=== PATIENT | female | born 1950 | race Caucasian/White ===

== ENCOUNTER 2021-05-12 07:05 | Day surgery (SDC) | payer OTHER ==
--- NOTE | 2021-05-09 14:52 | RAD REPORT ---
EXAM DESCRIPTION: RAD - Chest Pa And Lat (2 Views) - 05/09/2021 2:38 pm CLINICAL HISTORY: PreOp Heart Cath COMPARISON: January 2020 TECHNIQUE: Frontal and lateral views of the chest were obtained. FINDINGS: The lungs are clear. Interstitial pattern matches comparison. Heart size is normal and ce ntral vasculature is within normal limits. No pleural effusion or pneumothorax seen. No acute bony finding noted. No aortic abnormality. IMPRESSION: No acute cardiopulmonary process.
[2021-05-09 14:59] LABS: Absolute Lymphocytes (CBC) 2.4 K/uL (0.7-4.9); Basophils % 1.3 % (0-1.3); Hematocrit 37.5 % (36.0-45.0); Lymphocytes % 22.1 % (15.3-44.8); MPV 8.3 fL (7.6-11.3); RBC Red Blood Cell Count 4.33 M/uL (3.86-4.86)
[2021-05-09 15:02] LABS: Protime INR 1.14
[2021-05-09 15:04] LABS: Potassium 3.7 mmol/L (3.5-5.1)
[2021-05-12] MEDS ORDERED: NA CHLORIDE 0.9% 500 ML ONE (07:54)
[2021-05-12] MEDS ORDERED: MIDAZOLAM HCL 2 MG/2 ML INJ ONE ×2 (07:57→08:05)
[2021-05-12] MEDS ORDERED: FENTANYL CITR 100 MCG/2 ML ONE ×2 (07:57→08:05)
[2021-05-12] MEDS ORDERED: NITROGLYCERIN 100 MCG/ML SYR (for cath lab use only) IV ONE (08:03)
[2021-05-12] MEDS ORDERED: NA CHLORIDE 0.9% 0 ML ONE (08:03)
[2021-05-12] MEDS ORDERED: NITROGLYCERIN/D5W 25 MG/250 ML BTL IV ONE (08:04)
[2021-05-12] MEDS ORDERED: ATROPINE SULF 1 MG/10 ML SYR IV ONE (08:17)
--- NOTE | 2021-05-12 09:10 | OP ---
Date of Procedure: 05/12/2021 Surgeon: Chris Garcia MD Inweaver: Mr. Fco Springer. 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 Left heart catheterization with selective coronary arteriogram was done. The patient wa s prepped and draped in routine sterile fashion, given Versed and fentanyl for sedation. A 6-Uzbek sheath was introduced in the right common femoral artery successfully after 10 mL of xylocaine using the Seldinger technique. Angiography there was normal. StarClose was used to locally close the case . Catheterization showed moderate coronary artery disease. We used Miracle catheter left and right to cannulate the left main and right main respectively. The left main had about a 20% stenosis. The re was a 40% stenosis in the ostium of the circumflex, which was nondominant. A JR4 catheter was use d to cannulate the RCA. The RCA was a very large vessel that extended all the way to the apex. Ther e was some [id number] plaquing in the mid RCA, she was right dominant. The patient tolerated t he procedure well. There were no complications. Blood Loss: 5 mL. Postoperative Diagnosis: Moderate coronary artery disease. Plan: Plan is for medical therapy. We will probably increase her statin and consider the use of Imd ur or Ranexa. Anesthesia: Total conscious sedation, 45 minutes. YANIV/ABDI Voice ID: [id number] Report ID: [id number]
[2021-05-12 09:27] VITALS: TEMP 97.5
[2021-05-12 09:58] VITALS: O2SAT 95
[2021-05-12 09:59] VITALS: BP 142/74
== END 2021-05-12 10:25 | disposition home or self-care (01) ==
LOC: CCL 07:05
DX: I25.110 Atherosclerotic heart disease of native coronary artery with unstable angina pectoris (principal); I82.532 Chronic embolism and thrombosis of left popliteal vein; I10 Essential (primary) hypertension; E11.9 Type 2 diabetes mellitus without complications; E78.2 Mixed hyperlipidemia; E03.9 Hypothyroidism, unspecified; F17.210 Nicotine dependence, cigarettes, uncomplicated; G62.9 Polyneuropathy, unspecified; E66.9 Obesity, unspecified; Z68.37 Body mass index [BMI] 37.0-37.9, adult; Z20.822 Contact with and (suspected) exposure to COVID-19; Z88.8 Allergy status to other drugs, medicaments and biological substances; Z91.013 Allergy to seafood; Z82.49 Family history of ischemic heart disease and other diseases of the circulatory system
CPT/HCPCS: 93005; 85025; 80048; 36415; 85610; 82947; 85730; 71046; 93454; U0003; C1893; J2250; J3010; J7040; J0583

== ENCOUNTER 2021-07-15 10:27 | Emergency (ER) | payer OTHER ==
--- OUTSIDE RECORDS SUMMARY | 2021-07-15 10:30 | XMS REPORT | Continuity of Care Document ---
:1950 Author Organization [facility] t Address [address] [place] [address] Dr. Del[address]. [address] [place] [address] Care Team Providers Name Role Phone GINGER Attending Clinician Unavailable RAMA Attending Clinician Unavailable RAMA Attending Clinician Unavailable ISABEL DYER Admitting Clinician Unavailable Payers Payer Name Policy Type Policy Number Effective Date Expiration Date Johnnie DUDLEY [id number] 2020 PLUS CLASSIC/VALUE 00:00:00 Problems This patient has no known problems. Allergies, Adverse Reactions, Alerts Allergy Allergy Status Severity Reaction(s) Onset Inactive Treating Comm ents Source Name Type Date Date Clinician LOVASTAT DRUG Active High Anaphylaxis Uni vers IN INGREDI 08-30 ity of 00:00: [address] NSAIDS Drug Active High Unknown-Cmnt Univ ers (NON-MARCIA Class 08-30 ity of ROIDAL 00:00: [place] ANTI-INF [address] [place] [address] LAMMATOR [place] [facility]) Medications This patient has no known medications. Procedures This patient has no known procedures. Encounters Start End Encounter Admission Attending Care Care Encounter Source Date/Time Date/Time Type Type Clinicians Facility Department ID 2020-08-30 Inpatient U GINGER KSTHEO [facility] [id number] Univers 21:42:00 MIKE ity of [facility] 2020-11-21 2020-11-21 Outpatient R TAY ONTIVEROS [facility] 10 [id number] Univers 09:20:00 09:20:00 TAY ONTIVEROS i ty [facility] Results This patient has no known results.
[2021-07-15] MEDS ORDERED: NA CHLORIDE 0.9% 500 ML ONE ×2 (11:11→12:57)
[2021-07-15 11:26] LABS: Absolute Lymphocytes (CBC) 2.3 K/uL (0.7-4.9); Basophils % 0.8 % (0-1.3); Hematocrit 37.8 % (36.0-45.0); Lymphocytes % 27.2 % (15.3-44.8); MPV 8.1 fL (7.6-11.3); Protime INR 1.11; RBC Red Blood Cell Count 4.34 M/uL (3.86-4.86)
[2021-07-15 11:43] LABS: BUN Blood Urea Nitrogen 22 mg/dL (7-18); Bicarbonate 28 mmol/L (21-32); Glucose Level 123 mg/dL (74-106); Magnesium 2.1 mg/dL (1.8-2.4); NT PRO-BNP 120 pg/mL (<125); Potassium 3.7 mmol/L (3.5-5.1); Sodium Level 141 mmol/L (136-145); Troponin (Emerg Dept Use Only) < 0.02 ng/mL (0.0-0.045)
--- NOTE | 2021-07-15 12:13 | RAD REPORT ---
EXAM DESCRIPTION: CT - Head Brain Wo Cont - 07/15/2021 11:27 am CLINICAL HISTORY: generalized weakness, syncope COMPARISON: No comparisons TECHNIQUE: All CT scans are performed using dose optimization technique as appropriate and may inclu de automated exposure control or mA/KV adjustment according to patient size. FINDINGS: No intracranial hemorrhage, hydrocephalus or extra-axial fluid collection.No areas of brai n edema or evidence of midline shift. The paranasal sinuses and mastoids are clear. The calvarium is intact. IMPRESSION: No acute intracranial abnormality.
--- NOTE | 2021-07-15 12:27 | RAD REPORT ---
EXAM DESCRIPTION: Del Single View07/15/2021 11:33 am CLINICAL HISTORY: Hypotension COMPARISON: April 2021 FINDINGS: The lungs appear clear of acute infiltrate. The heart is normal size IMPRESSION: No acute abnormalities displayed
--- NOTE | 2021-07-15 15:07 | EDPHYS ---
Physician Documentation [facility] Name: Lian Warner Age: 70 yrs Sex: Female : 1950 Arrival Date: 07/15/2021 Time: 10:30 Bed 19 Private MD: Hudson Zabala Atiq ED Physician Felipe Barry HPI: 07/15 12:25 This 70 yrs old Female presents to ER via Wheelchair with complaints of Blood rn Pressure Problem. 12:25 Patient reports a few days of generalized weakness and fatigue. States noticed that rn blood pressure has been running lower than normal, in the range of 110 over 70s. States normally in the 140 range. Followed up with PCP, a lot of blood work was done and nothing acute found. Denies any fever or infectious symptoms. Denies any urinary symptoms. Reports did have diarrhea last week but has stopped after medication given by PCP. States 2 days ago sat up in bed and had a syncopal episode, no injury to head and landed in bed. Because of syncopal episode PCP sent her here to ER today after evaluation in clinic for further work-up. States recently placed on amlodipine for hypertension and is only supposed to take it when blood pressure is higher than 140, was dropping her blood pressure so stopped. Did not take today.. Onset: The symptoms/episode began/occurred at an unknown time. Severity of symptoms: At their worst the symptoms were moderate in the emergency department the symptoms have improved. The patient has not experienced similar symptoms in the past. The patient has been recently seen by a physician:. Historical: - Allergies: 10:47 NSAIDS (Non-Steroidal Anti-Inflamma; ll1 10:47 shrimp; ll1 - PMHx: 10:47 Hypertensive disorder; Diabetes mellitus; ll1 - PSHx: 10:47 Cholecystectomy; tubal ligation; ll1 - Immunization history:: Client reports receiving the 2nd dose of the Covid vaccine. - Social history:: Smoking status: Patient denies any tobacco usage or history of. - Family history:: not pertinent. - Hospitalizations: : No recent hospitalization is reported. ROS: 12:25 Constitutional: Negative for fever, chills, and weight loss, Eyes: Negative for injury, rn pain, redness, and discharge, ENT: Negative for injury, pain, and discharge, Neck: Negative for injury, pain, and swelling, Cardiovascular: Negative for chest pain, palpitations, and edema, Respiratory: Negative for shortness of breath, cough, wheezing, and pleuritic chest pain, Abdomen/GI: Negative for abdominal pain, nausea, vomiting, diarrhea, and constipation, Back: Negative for injury and pain, : Negative for injury, bleeding, discharge, and swelling, MS/Extremity: Negative for injury and deformity, Skin: Negative for injury, rash, and discoloration, Neuro: Negative for headache, numbness, tingling, and seizure. 12:25 All other systems are negative. Exam: 12:25 Constitutional: This is a well developed, well nourished patient who is awake, alert, rn and in no acute distress. Head/Face: Normocephalic, atraumatic. Eyes: Periorbital areas with no swelling, redness, or edema. ENT: Dry mucous membranes Cardiovascular: Regular rate and rhythm. No pulse deficits. Respiratory: No increased work of breathing, no retractions or nasal flaring. Abdomen/GI: Soft, non-tender Skin: Warm, dry MS/ Extremity: Pulses equal, no cyanosis. Neuro: Awake and alert, GCS 15, oriented to person, place, time, and situation. Cranial nerves II-XII grossly intact. Motor strength 5/5 in all extremities. Sensory grossly intact. Cerebellar exam normal. Vital Signs: 10:42 Pulse 72; Resp 16; Temp 97.4; Pulse Ox 99% ; Weight 118.39 kg; Height 5 ft. 11 in. ll1 (180.34 cm); Pain 0/10; 10:42 BP 142 / 71; ll1 11:08 BP 142 / 88; Pulse 76; Resp 18; Temp 97.6; Pulse Ox 100% ; sl2 12:02 BP 102 / 52; Pulse 69; Resp 18; Pulse Ox 100% ; jt3 13:04 BP 140 / 50; Pulse 68; Resp 16; Pulse Ox 100% on R/A; ss 14:28 BP 148 / 86; Pulse 66; Resp 16; Pulse Ox 100% on R/A; mh5 10:42 Body Mass Index 36.40 (118.39 kg, 180.34 cm) ll1 MDM: 10:55 Patient medically screened. rn 15:05 Differential Diagnosis dehydration, renal failure, HTN, medication side effect. Data rn reviewed: vital signs, nurses notes, lab test result(s), EKG, radiologic studies, CT scan, plain films, and as a result, I will discharge patient. Counseling: I had a detailed discussion with the patient and/or guardian regarding: the historical points, exam findings, and any diagnostic results supporting the discharge/admit diagnosis, lab results, radiology results, the need for outpatient follow up, to return to the emergency department if symptoms worsen or persist or if there are any questions or concerns that arise at home. Response to treatment: the patient's symptoms have mildly improved after treatment, and as a result, I will discharge patient. Special discussion: I discussed with the patient/guardian in detail that at this point there is no indication for admission to the hospital. It is understood, however, that if the symptoms persist or worsen the patient needs to return immediately for re-evaluation. ED course: No acute findings on blood work/CT head/chest x-ray. Feels better after IV hydration. Labs here consistent with labs as outpatient only showing prerenal and possibly dehydration. No measures of hypertension here. Will DC home with continuation of medication as prescribed and PCP follow-up.. 07/15 11:07 Order name: Basic Metabolic Panel 07/15 11:07 Order name: CBC with Diff rn 07/15 11:07 Order name: Magnesium; Complete Time: 12:22 07/15 11:07 Order name: NT PRO-BNP; Complete Time: 12:22 07/15 11:07 Order name: PT-INR; Complete Time: 12:22 07/15 11:07 Order name: Troponin (emerg Dept Use Only); Complete Time: 12:22 rn 07/15 11:07 Order name: XRAY Chest (1 view); Complete Time: 12:29 rn 07/15 11:07 Order name: EKG; Complete Time: 11: rn 07/15 11:07 Order name: CT Head Brain wo Cont; Complete Time: 12:22 rn 07/15 11:07 Order name: Basic Metabolic Panel; Complete Time: 12:22 [facility]DC 07/15 11:07 Order name: CBC with Automated Diff; Complete Time: 12:22 [facility] 07/15 15:29 Order name: Urine Dipstick-Ancillary [facility] 07/15 11:07 Order name: Cardiac monitoring; Complete Time: 11:14 rn 07/15 11:07 Order name: EKG - Nurse/Tech; Complete Time: : rn 07/15 11:07 Order name: IV Saline Lock; Complete Time: : rn 07/15 11:07 Order name: Labs collected and sent; Complete Time: : rn 07/15 11:07 Order name: O2 Per Protocol; Complete Time: : rn 07/15 11:07 Order name: O2 Sat Monitoring; Complete Time: : rn Administered Medications: 11:14 Drug: NS 0.9% 500 ml Route: IV; Rate: bolus; Site: left antecubital; sl2 12:56 Follow up: IV Status: Completed infusion; IV Intake: 500ml ss 13:03 Drug: NS 0.9% 500 ml Route: IV; Rate: bolus; Site: left antecubital; ss Disposition Summary: 07/15/21 15:06 Discharge Ordered Location: Home rn Problem: new rn Symptoms: have improved rn Condition: Stable rn Diagnosis - Muscle weakness (generalized) rn - Other malaise and fatigue rn Followup: rn - With: Private Physician - When: As needed - Reason: Recheck today's complaints, Re-evaluation by your physician Discharge Instructions: - Discharge Summary Sheet rn - Dehydration, Adult rn - Weakness rn Forms: - Medication Reconciliation Form rn - Thank You Letter rn - Work release form bd - Antibiotic mergers and acquisitions attorney - Prescription Opioid Use rn Signatures: Dispatcher [employer] Felipe Squires MD MD rn Smirch, Shelby, RN RN Brandi Nino RN RN 1 Apurva Eid RN RN sl2
--- NOTE | 2021-07-15 15:07 | ER ---
Nurse's Notes [facility] Name: Lian Warner Age: 70 yrs Sex: Female : 1950 Arrival Date: 07/15/2021 Time: 10:30 Bed 19 Private MD: Hudson Zabala Atiq Diagnosis: Muscle weakness (generalized);Other malaise and fatigue Presentation: 07/15 10:42 Chief complaint: Patient states: BP has been low off/on for 2 days. Blood sugar has ll1 been lower than usual (fingerstick 103) this morning. Dizzy, FISHER, weak, nausea. Diarrhea since 07/07/21, on Flagyl, diarrhea is better now. Coronavirus screen: Vaccine status: Patient reports receiving the 2nd dose of the covid vaccine. Client denies travel out of the [place] in the last 14 days. At this time, the client does not indicate any symptoms associated with coronavirus-19. Ebola Screen: Patient denies travel to an Ebola-affected area in the 21 days before illness onset. Initial Sepsis Screen: Does the patient meet any 2 criteria? No. Patient's initial sepsis screen is negative. Initial Sepsis Screen: Does the patient have a suspected source of infection? Yes: Acute abdominal pain. Risk Assessment: Do you want to hurt yourself or someone else? Patient reports no desire to harm self or others. Onset of symptoms was July 07, 2021. 10:42 Method Of Arrival: Wheelchair ll1 10:42 Acuity: CHELO 3 ll1 Historical: - Allergies: 10:47 NSAIDS (Non-Steroidal Anti-Inflamma; ll1 10:47 shrimp; ll1 - PMHx: 10:47 Hypertensive disorder; Diabetes mellitus; ll1 - PSHx: 10:47 Cholecystectomy; tubal ligation; ll1 - Immunization history:: Client reports receiving the 2nd dose of the Covid vaccine. - Social history:: Smoking status: Patient denies any tobacco usage or history of. - Family history:: not pertinent. - Hospitalizations: : No recent hospitalization is reported. Screenin:09 Abuse screen: Denies threats or abuse. Nutritional screening: No deficits noted. sl2 Tuberculosis screening: No symptoms or risk factors identified. Fall Risk No fall in past 12 months (0 pts). No secondary diagnosis (0 pts). IV access (20 points). Ambulatory Aid- Crutches/Cane/Walker (15 pts). Gait- Weak (10 pts.). Mental Status- Oriented to own ability (0 pts). Total Galo Fall Scale indicates High Risk Score (45 or more points). Fall prevention measures have been instituted. Side Rails Up X 2 Placed Close to Nursing Station Frequent Obs/Assessments Occuring Family Present and informed to notify staff if the need to leave the bedside. Assessment: 10:53 General: Appears uncomfortable, obese, well groomed, well developed, Behavior is calm, sl2 cooperative, appropriate for age, Reports Hypotension and lower than normal blood sugars with finger stick blood glucose = 103 this am. Patient reports feeling weak and dizzy today. Denies pain - presents to ED for evaluaiton. Pain: Denies pain. Neuro: No deficits noted. Level of Consciousness is awake, alert, obeys commands, Oriented to person, place, time, situation, Appropriate for age Deck Cadet are equal bilaterally Moves all extremities. Full function Gait is unsteady, Speech is normal, Reports dizziness, headache. Neuro: Reports weakness. Cardiovascular: No deficits noted. Respiratory: No deficits noted. Airway is patent Trachea midline Respiratory effort is even, unlabored, Respiratory pattern is regular, symmetrical, Breath sounds are clear bilaterally. GI: Abdomen is round obese, Bowel sounds present X 4 quads. Abd is soft and non tender. : No deficits noted. No signs and/or symptoms were reported regarding the genitourinary system. EENT: No deficits noted. No signs and/or symptoms were reported regarding the EENT system. Derm: No deficits noted. No signs and/or symptoms reported regarding the dermatologic system. Musculoskeletal: No deficits noted. No signs and/or symptoms reported regarding the musculoskeletal system. 11:17 Reassessment: Portable CXR in progress at bedside. sl2 13:03 Reassessment: Patient appears in no apparent distress at this time. Patient and/or ss family updated on plan of care and expected duration. Pain level reassessed. Patient is alert, oriented x 3, equal unlabored respirations, skin warm/dry/pink. 2nd bolus infusing. Awaiting for completion to determine plan of care/ disposition. Family member remains at bedside. Pt has no complaints at this time other than she is hungry. Will notify Dr. Barry and ask if she can eat. Vital Signs: 10:42 Pulse 72; Resp 16; Temp 97.4; Pulse Ox 99% ; Weight 118.39 kg; Height 5 ft. 11 in. ll1 (180.34 cm); Pain 0/10; 10:42 BP 142 / 71; ll1 11:08 BP 142 / 88; Pulse 76; Resp 18; Temp 97.6; Pulse Ox 100% ; sl2 12:02 BP 102 / 52; Pulse 69; Resp 18; Pulse Ox 100% ; jt3 13:04 BP 140 / 50; Pulse 68; Resp 16; Pulse Ox 100% on R/A; ss 14:28 BP 148 / 86; Pulse 66; Resp 16; Pulse Ox 100% on R/A; mh5 10:42 Body Mass Index 36.40 (118.39 kg, 180.34 cm) ll1 ED Course: 10:30 Patient arrived in ED. as 10:30 Hudson Zabala MD is Private Physician. as 10:47 Triage completed. ll1 10:48 Arm band placed on Patient placed in an exam room, on a stretcher. ll1 10:52 Apurva Eid, RN is Primary Nurse. sl2 10:55 Felipe Barry MD is Attending Physician. rn 11:09 Patient has correct armband on for positive identification. Bed in low position. Call sl2 light in reach. Side rails up X2. Adult w/ patient. alarm security or surveillance monitor on. Pulse ox on. NIBP on. Door closed. Noise minimized. Warm blanket given. 11:09 No provider procedures requiring assistance completed. Inserted saline lock: 20 gauge sl2 in left antecubital area, using aseptic technique. Blood collected. 11:16 CBC with Automated Diff Sent. 5 11:16 Basic Metabolic Panel Sent. 5 11:16 Basic Metabolic Panel Sent. 5 11:16 CBC with Diff Sent. 5 11:16 Magnesium Sent. 5 11:16 NT PRO-BNP Sent. [facility] 11:16 PT-INR Sent. [facility] 11:16 Troponin (emerg Dept Use Only) Sent. 5 11:17 Initial lab(s) drawn, by ED staff, sent to lab. EKG done, by ED staff, reviewed by jewels Barry MD. 11:[address] via stretcher. sl2 11:27 CT Head Brain wo Cont In Process Unspecified. EDMS 11:33 XRAY Chest (1 view) In Process Unspecified. EDMS 16:07 IV discontinued, intact, bleeding controlled, No redness/swelling at site. Pressure ss dressing applied. Administered Medications: 11:14 Drug: NS 0.9% 500 ml Route: IV; Rate: bolus; Site: left antecubital; sl2 12:56 Follow up: IV Status: Completed infusion; IV Intake: 500ml ss 13:03 Drug: NS 0.9% 500 ml Route: IV; Rate: bolus; Site: left antecubital; ss Intake: 12:56 IV: 500ml; Total: 500ml. ss Outcome: 15:06 Discharge ordered by . rn 16:07 Discharged to home ambulatory. ss 16:07 Condition: good 16:07 Discharge instructions given to patient, family, Instructed on discharge instructions, follow up and referral plans. Demonstrated understanding of instructions, follow-up care. 16:08 Patient left the ED. ss Signatures: Dispatcher [employer] Sylvia Awan Roman, MD MD rn Smirch, Shelby, RN RN Dai Warner [facility] Brandi Amaya RN RN ll1 Apurva Eid RN RN sl2 Naveed Whaley RN RN jt3
[2021-07-15 15:29] LABS: Urine Blood Negative (Negative); Urine Glucose Negative (Negative); Urine Protein Negative (Negative); Urine Specific Gravity 1.025 (1.005-1.030)
[2021-07-15 16:19] VITALS: TEMP 97.6; O2SAT 100
[2021-07-15 16:23] VITALS: BP 148/86
--- NOTE | 2021-07-16 17:01 | EKG ---
Test Date: 2021-07-15 Test Time: 11:09:52 [employer] Director: ELLEN MEASUREMENT RESULTS: Intervals: Rate: 71 GA: 160 QRSD: 80 QT: 378 QTc: 410 [place]: P: 56 GA: 160 QRS: 30 T: 63 INTERPRETIVE STATEMENTS: Sinus rhythm with occasional premature ventricular complexes Nonspecific T wave abnormality Abnormal ECG Compared to ECG 05/09/2021 13:16:46 Ventricular premature complex(es) now present T-wave abnormality now present ST (T wave) deviation no longer present Electronically Signed On 07-16-21 16:57:19 WIRE WELDER by Chris Garcia
== END 2021-07-15 16:08 | disposition home or self-care (01) ==
LOC: ER 10:27
DX: M62.81 Muscle weakness (generalized) (principal); R53.81 Other malaise; I10 Essential (primary) hypertension; E11.9 Type 2 diabetes mellitus without complications; Z88.6 Allergy status to analgesic agent; Z91.013 Allergy to seafood
CPT/HCPCS: 96361; 93005; 85025; 80048; 36415; 83735; 85610; 81003; 84484; 83880; 70450; 71045; 96360; 99285; J7040 ×2

== ENCOUNTER 2022-03-12 17:01 | Emergency (ER) | payer MEDICARE, OTHER ==
[2022-03-12 17:48] LABS: Absolute Lymphocytes (CBC) 2.5 K/uL (0.7-4.9); Hematocrit 36.6 % (36.0-45.0); Lymphocytes % 28.8 % (15.3-44.8); MCV 86.4 fL (80-100); MPV 8.1 fL (7.6-11.3); RBC Red Blood Cell Count 4.23 M/uL (3.86-4.86)
[2022-03-12 17:52] LABS: Protime INR 1.12
--- NOTE | 2022-03-12 18:03 | RAD REPORT ---
EXAM DESCRIPTION: RAD - Chest Single View - 03/12/2022 5:54 pm CLINICAL HISTORY: SOB Chest pain. COMPARISON: Chest Single View dated 07/15/2021; Chest Pa And Lat (2 Views) dated 05/09/2021; Chest Pa And Lat (2 Views) dated 02/26/2020 FINDINGS: Portable technique limits examination quality. Slightly prominent interstitial markings are seen likely representing viral infection. The heart is n ormal in size. No displaced fractures.
[2022-03-12 18:17] LABS: Potassium 3.5 mmol/L (3.5-5.1); Troponin High Sensitivity 11.2 pg/mL (<58.9)
--- NOTE | 2022-03-12 19:44 | RAD REPORT ---
EXAM DESCRIPTION: CT - Chest For Pe Angio - 03/12/2022 7:34 pm CLINICAL HISTORY: Chest pain. Pulmonary embolism (PE) suspected, positive D-dimer COMPARISON: No comparisons TECHNIQUE: CT angiogram of the pulmonary arteries was performed with MIP. All CT scans are performed using dose optimization technique as appropriate and may include automated exposure control or mA/KV adjustment according to patient size. FINDINGS: No evidence of pulmonary thromboembolism. No acute aortic finding demonstrated. The lungs are clear. No significant pericardial or pleural fluid. No concerning bony finding. IMPRESSION: No evidence of pulmonary thromboembolism. No acute lung findings.
[2022-03-12] MEDS ORDERED: ACETAMINOPHEN 500 MG TAB ONE (20:53)
[2022-03-12] MEDS ORDERED: DIPHENHYDRAMINE 50 MG/ML VIAL ONE (20:53)
[2022-03-12] MEDS ORDERED: BEBTELOVIMAB 175 MG/2 ML VIAL IV ONE (20:53)
--- NOTE | 2022-03-12 22:42 | EDPHYS ---
Physician Documentation [facility] Name: Lian Warner Age: 71 yrs Sex: Female : 1950 Arrival Date: 03/12/2022 Time: 17:02 Bed 4 Private MD: ED Physician Angel Moreno HPI: 03/12 17:49 This 71 yrs old Female presents to ER via Ambulatory with complaints of Shortness Of jr11 Breath. 17:49 The patient has shortness of breath with light activity, laying flat. Onset: The jr11 symptoms/episode began/occurred 7 day(s) ago. Duration: The symptoms are continuous, and are steadily getting worse. The patient's shortness of breath is aggravated by light activity, supine position, is alleviated by nothing. Associated signs and symptoms: Pertinent negatives: chest pain, productive cough, nausea. Severity of symptoms: At their worst the symptoms were moderate in the emergency department the symptoms are worse. Pt with 1 week dyspnea, no pain . Historical: - Allergies: 17:25 NSAIDS (Non-Steroidal Anti-Inflamma; iw 17:25 shrimp; iw - PMHx: 17:25 diabetes mellitus; Hypertensive disorder; iw - PSHx: 17:25 Cholecystectomy; tubal ligation; iw - Immunization history:: Client reports receiving the 2nd dose of the Covid vaccine. - Social history:: Smoking status: unknown. ROS: 17:49 All other systems are negative. jr11 Exam: 17:49 Constitutional: This is a well developed, well nourished patient who is awake, alert, jr11 and in no acute distress. Head/Face: Normocephalic, atraumatic. Eyes: Extra-ocular motions intact. Lids and lashes normal. Conjunctiva and sclera are non-icteric and not injected. Cornea within normal limits. Periorbital areas with no swelling, redness, or edema. ENT: Nares patent. No nasal discharge, no septal abnormalities noted. Oropharynx with no redness, swelling, or masses, exudates, or evidence of obstruction, uvula midline. Mucous membranes moist. Neck: Trachea midline, no thyromegaly or masses palpated, and no cervical lymphadenopathy. Supple, full range of motion without nuchal rigidity, or vertebral point tenderness. No Meningismus. Chest/axilla: Normal chest wall appearance and motion. Nontender with no deformity. No lesions are appreciated. Cardiovascular: Regular rate and rhythm with a normal S1 and S2. No gallops, murmurs, or rubs. Normal PMI, no JVD. No pulse deficits. Respiratory: diminished diffusely Abdomen/GI: Soft, non-tender, with normal bowel sounds. No distension or tympany. No guarding or rebound. No evidence of tenderness throughout. Back: No spinal tenderness. No costovertebral tenderness. Full range of motion. Skin: Warm, dry with normal turgor. Normal color with no rashes, no lesions, and no evidence of cellulitis. MS/ Extremity: Pulses equal, no cyanosis. Neurovascular intact. Full, normal range of motion. Neuro: Awake and alert, GCS 15, oriented to person, place, time, and situation. No gross motor or sensory deficits. Vital Signs: 17:22 BP 128 / 66; Pulse 88; Resp 16; Temp 98.7; Pulse Ox 99% on R/A; Weight 119.75 kg; iw Height 5 ft. 11 in. (180.34 cm); 19:21 BP 139 / 64; Pulse 77; Resp 17; Pulse Ox 99% on R/A; as6 20:37 BP 138 / 75; Pulse 72; Resp 18; Pulse Ox 100% on R/A; ld1 21:45 BP 140 / 80; Pulse 69; Resp 17 S; Pulse Ox 99% on R/A; as6 22:47 BP 141 / 63; Pulse 70; Resp 14 S; Pulse Ox 98% on R/A; as6 17:22 Body Mass Index 36.82 (119.75 kg, 180.34 cm) iw MDM: 17:36 Patient medically screened. jr11 17:49 Differential diagnosis: Bronchitis pneumonia, pulmonary edema. Data reviewed: [facility] signs, nurses notes. 20:35 ED course: Feels better, well appearing, NAD, VSS, no focal neurological deficits. mh7 Discussed all test results and findings of COVID and available treatment options. Offered admission for observation but patient declined and requests to be discharged home. She does want treatment with [facility] if available.. 22:39 ED course: Patient received Bebtelovimab as requested and feels better. Well appearing, 7 NAD, VSS, no focal neurological deficits. She states that she is ready to be discharged home.. 03/12 17:27 Order name: Basic Metabolic Panel; Complete Time: 18:23 03/12 17:27 Order name: CBC with Diff; Complete Time: 18:04 03/12 17:27 Order name: Troponin HS; Complete Time: 18:23 03/12 17:32 Order name: PT-INR; Complete Time: 18:04 03/12 17:34 Order name: BNP; Complete Time: 19:08 [facility] 03/12 17:34 Order name: COVID-19 SARS RT PCR (Document "Date of Onset" if Symptomatic); Complete Time: 19:28 03/12 17:27 Order name: XRAY Chest (1 view); Complete Time: 18:04 03/12 17:27 Order name: EKG; Complete Time: 17:28 03/12 17:27 Order name: Cardiac monitoring; Complete Time: 19:20 03/12 17:34 Order name: D-Dimer; Complete Time: 18:04 03/12 18:49 Order name: CT Chest For PE Angio; Complete Time: 20:02 03/12 17:27 Order name: EKG - Nurse/Tech; Complete Time: 19:04 03/12 17:27 Order name: IV Saline Lock; Complete Time: 18:56 03/12 17:27 Order name: Labs collected and sent; Complete Time: 18:56 03/12 17:27 Order name: O2 Per Protocol; Complete Time: 19:20 03/12 17:27 Order name: O2 Sat Monitoring; Complete Time: 19:20 Administered Medications: 20:52 Drug: Benadryl (diphenhydrAMINE) 25 mg Route: IVP; Site: left antecubital; as6 22:49 Follow up: Response: No adverse reaction as6 20:54 Drug: Tylenol 1000 mg Route: PO; as6 22:49 Follow up: Response: No adverse reaction as6 21:30 Drug: bebtelovimab 175 mg Route: IV; Rate: per protocol; Site: left antecubital; as6 22:49 Follow up: Response: No adverse reaction; IV Status: Infusion continued; IV Intake: 2ml as6 Disposition Summary: 03/12/22 22:42 Discharge Ordered Location: Home mh7 Problem: new mh7 Symptoms: have improved mh7 Condition: Stable [facility] Diagnosis - SARS-associated coronavirus as the cause of diseases classified elsewhere [facility] Followup: [facility] - With: Private Physician - When: 1 - 2 days - Reason: Worsening of condition, Recheck today's complaints, Continuance of care, Re-evaluation by your physician Discharge Instructions: - Discharge Summary Sheet [facility] - COVID-19 [facility] - Things to Know about the COVID-19 Pandemic - [place] [id number] - 10 Things You Can Do to Manage Your COVID-19 Symptoms at Home - [place] [address] - COVID-19: Quarantine vs. Isolation - [place] [address] - Prevent the Spread of COVID-19 if You Are Sick - [place] [address] Forms: - Medication Reconciliation Form [facility] - Thank You Letter [facility] - Antibiotic Education [facility] - Prescription Opioid Use [facility] Prescriptions: - ALBUTEROL - inhale 1 puff by INHALATION route every 4-6 hours As needed; 1 Inhaler; [facility] Refills: 0, Product Selection Permitted - Tessalon Perles 100 mg Oral Capsule - take 1 capsule by ORAL route every 8 hours As needed; 15 capsule; Refills: 0, [facility] Product Selection Permitted - Zithromax Z-Rkis 250 mg Oral Tablet - take 1 tablet by ORAL route as directed for 5 days Day 1 - take two (2) tablets [facility] one time. Day 2, 3, 4 , 5 take one (1) tablet once daily.; 6 tablet; Refills: 0, Product Selection Permitted Signatures: Dispatcher [employer] Leelee Cohen RN RN iw Holmes, Maurice, MD MD 7 Stan Espinoza RN RN as6 Rodrigo Doty MD MD jr11 Apurva Smith PA PA sb3
--- NOTE | 2022-03-12 22:42 | ER ---
Nurse's Notes [facility] Name: Lian Warner Age: 71 yrs Sex: Female : 1950 Arrival Date: 03/12/2022 Time: 17:02 Bed 4 Private MD: Diagnosis: SARS-associated coronavirus as the cause of diseases classified elsewhere Presentation: 03/12 17:22 Chief complaint: Patient states: SOB X 1 week, getting worse, denies chest pain, drinks iw 7 up to relieve the SOb but it comes back, denies cough fever or chills , reports she has midsternal pain when she takes a deep breath. Coronavirus screen: At this time, the client does not indicate any symptoms associated with coronavirus-19. Ebola Screen: Patient negative for fever greater than or equal to 101.5 degrees Fahrenheit, and additional compatible Ebola Virus Disease symptoms Patient denies exposure to infectious person. Patient denies travel to an Ebola-affected area in the 21 days before illness onset. No symptoms or risks identified at this time. Initial Sepsis Screen: Does the patient meet any 2 criteria? No. Patient's initial sepsis screen is negative. Does the patient have a suspected source of infection? No. Patient's initial sepsis screen is negative. Risk Assessment: Do you want to hurt yourself or someone else? Patient reports no desire to harm self or others. Onset of symptoms was March 05, 2022. 17:22 Method Of Arrival: Ambulatory iw 17:22 Acuity: CHELO 3 iw Historical: - Allergies: 17:25 NSAIDS (Non-Steroidal Anti-Inflamma; iw 17:25 shrimp; iw - PMHx: 17:25 diabetes mellitus; Hypertensive disorder; iw - PSHx: 17:25 Cholecystectomy; tubal ligation; iw - Immunization history:: Client reports receiving the 2nd dose of the Covid vaccine. - Social history:: Smoking status: unknown. Screenin:23 Abuse screen: Denies threats or abuse. Denies injuries from another. Nutritional as6 screening: No deficits noted. Tuberculosis screening: No symptoms or risk factors identified. Fall Risk None identified. Assessment: 19:20 General: Appears in no apparent distress. Behavior is calm, cooperative. Pain: Denies as6 pain. Neuro: Level of Consciousness is awake, alert, obeys commands, Oriented to person, place, time, situation. Cardiovascular: Reports shortness of breath, Rhythm is sinus rhythm. Respiratory: Reports shortness of breath at rest on exertion Airway is patent Respiratory effort is even, unlabored. 21:46 Reassessment: Patient appears in no apparent distress at this time. Patient is alert, as6 oriented x 3, equal unlabored respirations, skin warm/dry/pink. Vital Signs: 17:22 BP 128 / 66; Pulse 88; Resp 16; Temp 98.7; Pulse Ox 99% on R/A; Weight 119.75 kg; iw Height 5 ft. 11 in. (180.34 cm); 19:21 BP 139 / 64; Pulse 77; Resp 17; Pulse Ox 99% on R/A; as6 20:37 BP 138 / 75; Pulse 72; Resp 18; Pulse Ox 100% on R/A; ld1 21:45 BP 140 / 80; Pulse 69; Resp 17 S; Pulse Ox 99% on R/A; as6 22:47 BP 141 / 63; Pulse 70; Resp 14 S; Pulse Ox 98% on R/A; as6 17:22 Body Mass Index 36.82 (119.75 kg, 180.34 cm) iw ED Course: 17:02 Patient arrived in ED. as 17:25 Triage completed. iw 17:25 Arm band placed on. iw 17:32 Inserted saline lock: 22 gauge in left antecubital area, using aseptic technique. Blood iw collected. 17:33 Rodrigo Doty MD is Attending Physician. jr11 17:56 XRAY Chest (1 view) In Process Unspecified. EDMS 19:04 Stan Espinoza RN is Primary Nurse. as6 19:23 Attending Physician role handed off by Rodrigo Doty MD mh7 19:23 Angel Moreno MD is Attending Physician. mh7 19:23 Placed in gown. Bed in low position. Call light in reach. Side rails up X2. Client as6 placed on continuous cardiac and pulse oximetry monitoring. NIBP monitoring applied. Warm blanket given. 19:36 CT Chest For PE Angio In Process Unspecified. EDMS 21:16 Primary Nurse role handed off by Stan Espinoza, RN as6 21:29 Stan Espinoza RN is Primary Nurse. as6 22:48 No provider procedures requiring assistance completed. IV discontinued, intact, as6 bleeding controlled, No redness/swelling at site. Pressure dressing applied. Administered Medications: 20:52 Drug: Benadryl (diphenhydrAMINE) 25 mg Route: IVP; Site: left antecubital; as6 22:49 Follow up: Response: No adverse reaction as6 20:54 Drug: Tylenol 1000 mg Route: PO; as6 22:49 Follow up: Response: No adverse reaction as6 21:30 Drug: bebtelovimab 175 mg Route: IV; Rate: per protocol; Site: left antecubital; as6 22:49 Follow up: Response: No adverse reaction; IV Status: Infusion continued; IV Intake: 2ml as6 Medication: 22:48 VIS not applicable for this client. as6 Intake: 22:49 IV: 2ml; Total: 2ml. as6 Outcome: 22:42 Discharge ordered by . 7 22:48 Discharged to home ambulatory. as6 22:48 Condition: stable 22:48 Discharge instructions given to patient, Instructed on discharge instructions, follow up and referral plans. medication usage, Demonstrated understanding of instructions, follow-up care, medications, Prescriptions given X 3. 22:50 Patient left the ED. as6 Signatures: Dispatcher [employer] EDMS Sylvia Warner Irene, RN RN iw Angel Moreno MD MD 7 Magaly Prince RN RN ld1 Stan Espinoza RN RN as6 Rodrigo Doty MD MD jr11
[2022-03-12 23:26] VITALS: TEMP 98.7
[2022-03-12 23:35] VITALS: BP 141/63; O2SAT 98
--- NOTE | 2022-03-14 09:05 | EKG ---
Test Date: 2022-03-12 Test Time: 19:05:39 [employer] Operator: JOSE MEASUREMENT RESULTS: Intervals: Rate: 79 GA: 140 QRSD: 76 QT: 366 QTc: 419 [place]: P: 26 GA: 140 QRS: 10 T: -52 INTERPRETIVE STATEMENTS: Normal sinus rhythm Nonspecific ST and T wave abnormality Abnormal ECG Compared to ECG 07/15/2021 11:09:52 ST (T wave) deviation now present Ventricular premature complex(es) no longer present T-wave abnormality no longer present Electronically Signed On 03-14-22 09:02:57 CDT by Chris Garcia
== END 2022-03-12 22:50 | disposition home or self-care (01) ==
LOC: ER 17:01
DX: U07.1 COVID-19 (principal); E11.9 Type 2 diabetes mellitus without complications; I10 Essential (primary) hypertension; Z88.6 Allergy status to analgesic agent; Z91.013 Allergy to seafood
CPT/HCPCS: 93005; 85025; 80048; 36415; 85610; 85379; 84484; 83880; 71275; 71045; 99284; U0003; Q9967; J1200

== ENCOUNTER 2022-05-20 13:18 | Inpatient (IN) | payer MEDICARE ==
--- OUTSIDE RECORDS SUMMARY | 2022-05-20 13:21 | XMS REPORT | Continuity of Care Document ---
:1950 Author Organization [facility] t Address [address] [place] [address] Dr. Melendrez [address] [place] [address] Care Team Providers Name Role Phone MIKE MILES Attending Clinician Unavailable Carine Attending Clinician Unavailable OLIVIER Attending Clinician Unavailable STARR Attending Clinician Unavailable TAY ONTIVEROS Attending Clinician Unavailable TAY ONTIVEROS Attending Clinician Unavailable Sahra_A_AH Attending Clinician Unavailable Micky Briones Attending Clinician KWABENA DYER Admitting Clinician Unavailable Carine Admitting Clinician Unavailable OLIVIER Admitting Clinician Unavailable STARR Admitting Clinician Unavailable Deniseo_A_AH Admitting Clinician Unavailable Micky Briones Admitting Clinician Payers Payer Name Policy Type Policy Number Effective Date Expiration Date S kaci [employer] [place] [employer] [id number] 2020 CLASSIC/VALUE 00:00:00 [facility] [id number] 2021 (MEDICARE 00:00:00 REPLACEMENT HMO) [employer] OF [place] - [id number] 2019 [place] (MEDICARE 00:00:00 REPLACEMENT/ADVANTA GE - HMO) Problems Condition Condition Condition Status Onset Resolution Last Treating Co mments Source Name Details Category Date Date Treatment Clinician Date IMPACTED IMPACTED Diagnosis Active 2016-03-23 Memoria GALLSTONE GALLSTONE 03-17 22:00:00 l Active 00:00: Alcides 03/17/[address] [place] [address] Alcides Hyperchole Hyperchol Problem Resolve 2016-03-21 Memoria sterolemia esterolemi d 02:10:25 l (disorder) john morrow (disorder) Resolved Problem 03/21/2016 [place] Hypertensi Hypertens Problem Resolve 2016-03-21 Memoria ve tari d 02:10:25 l disorder, disorder, Herm lilia systemic systemic arterial arterial (disorder) (disorder) Resolved Problem 03/21/2016 [facility] Hypothyroi Hypothyro Problem Resolve 2016-03-21 Memoria dism idism d 02:10:25 l (disorder) (disorder) He rmann Resolved Problem 03/21/2016 [facility] GALLSTONE Diagnosis Active 2016-03-23 Memoria ILEUS GALLSTONE 22:00:00 l ILEUS Alcides Active [facility] Allergies, Adverse Reactions, Alerts Allergy Allergy Status Severity Reaction(s) Onset Inactive Treating Comm ents Source Name Type Date Date Clinician LOVASTAT DRUG Active High Anaphylaxis Uni vers IN INGREDI 08-30 ity of 00:00: [place] 00 Medical Branch NSAIDS Drug Active High Unknown-Cmnt Univ ers (NON-MARCIA Class 08-30 ity of ROIDAL 00:00: [place] ANTI-INF 00 Medical LAMMATOR Branch Y DRUG) NSAIDs [facility] Social History Smoking Status Start Date Stop Date Source Social History [facility] Medications Ordered Filled Start Stop Current Ordering Indication Dosage Frequency Signature Comments Components Source Medication Medication Date Date Medication? Clinician (SIG) Name Name Acetaminoph Yes 1 tab, PO, Memoria en 325 MG / 7-20 Q4H, PRN l Hydrocodone 21:15: Pain Score Alcides Bitartrate 00 4-6, 0 10 MG Oral Refill(s) Tablet Acetaminoph Yes 1 tab, PO, Memoria en 325 MG / 7-20 Q4H, PRN l Hydrocodone 21:15: Pain Score [place] Bitartrate 00 4-6, 0 10 MG Oral Refill(s) Tablet pneumococca No Notes: Velasquez sophie l capsular 7-20 (Same as: l polysacchar 14:00: Pneumovax H ermann kory type ) vaccine / Refrigerat pneumococca e l capsular polysacchar kory type 10A vaccine / pneumococca l capsular polysacchar kory type 11A vaccine / pneumococca l capsular polysacchar kory type 12F vaccine / pneumococca l capsular polysacchar pneumococca No Notes: Velasquez sophie l capsular 7-20 (Same as: l polysacchar 14:00: Pneumovax H ermann kory type ) vaccine / Refrigerat pneumococca e l capsular polysacchar kory type 10A vaccine / pneumococca l capsular polysacchar kory type 11A vaccine / pneumococca l capsular polysacchar kory type 12F vaccine / pneumococca l capsular polysacchar heparin No Notes: Memoria 7-20 porcine l 02:00: heparin heparin No Notes: Memoria 7-20 porcine l 02:00: heparin ondansetron No Route: IV, Memoria (ANES) 03-17 Drug form: l 20:34: INJ, ONCE, Stop date: 03/17/16 15:34:00 CDT propofol No Route: IV, Mem oria (ANES) 03-17 Drug form: l 20:34: INJ, ONCE, Stop date: 03/17/16 15:34:00 CDT rocuronium No Route: IV, M emoria (ANES) 03-17 Drug form: l 20:34: INJ, ONCE, Stop date: 03/17/16 15:34:00 CDT ketOROLAC 0 No IV, ONCE Velasquez sophie (ANES) 03-17 l 20:34: propofol No Route: IV, Mem oria (ANES) 03-17 Drug form: l 20:34: INJ, ONCE, Stop date: 03/17/16 15:34:00 CDT rocuronium No Route: IV, M emoria (ANES) 03-17 Drug form: l 20:34: INJ, ONCE, Stop date: 03/17/16 15:34:00 CDT ketOROLAC 0 No IV, ONCE Velasquez sophie (ANES) 03-17 l 20:34: ondansetron No Route: IV, Memoria (ANES) 03-17 Drug form: l 20:34: INJ, ONCE, Stop date: 03/17/16 15:34:00 CDT midazolam 0 No Route: IV, Me moria (ANES) 03-17 Drug form: l 20:31: SOLN, ONCE, Stop date: 03/17/16 15:31:00 CDT fentaNYL 2016-0 No Route: IV, Mem oria (ANES) 03-17 Drug form: l 20:31: INJ, ONCE, [place] 00 Stop date: 03/17/16 15:31:00 CDT midazolam No Route: IV, Me moria (ANES) 03-17 Drug form: l 20:31: SOLN, [place] 00 ONCE, Stop date: 03/17/16 15:31:00 CDT fentaNYL No Route: IV, Mem oria (ANES) 03-17 Drug form: l 20:31: INJ, ONCE, Alcides 00 Stop date: 03/17/16 15:31:00 CDT Hydromorpho No Notes: Velasquez sophie ne 03-17 Same as: l 20:26: Dilaudid Alcides Acetaminoph No Notes: Do M emoria en 325 MG / 03-17 not exceed l Hydrocodone 20:26: 4gm/day of Alcides Bitartrate 00 acetaminop 10 MG Oral hen. (Same Tablet as: [place] 325/10) Acetaminoph No Notes: Velasquez sophie en 325 MG / 03-17 (Same as: l Hydrocodone 20:26: [place] Mehreen nn Bitartrate 00 325/5) Do 5 MG Oral not exceed Tablet 4gm/day of acetaminop hen. Calcium No 1,000 mL, Memor ia Chloride 03-17 Rate: 125 l 0.0014 20:26: ml/hr, Alcides MEQ/ML / 00 Infuse Potassium over: 8 Chloride hr, Route: 0.004 IV, Dosing MEQ/ML / Weight Sodium 118.182 Chloride kg, Total 0.103 Volume: MEQ/ML / 1,000, Sodium Start Lactate date: 0.028 03/17/16 MEQ/ML 15:26:00 Injectable CDT, Solution Duration: 30 day, Stop date: 04/16/16 15:25:00 CDT Hydromorpho No Notes: Velasquez sophie ne 03-17 Same as: l 20:26: Dilaudid Alcides Acetaminoph No Notes: Do M emoria en 325 MG / 03-17 not exceed l Hydrocodone 20:26: 4gm/day of [place] Bitartrate 00 acetaminop 10 MG Oral hen. (Same Tablet as: [place] 325/10) Acetaminoph No Notes: Velasquez sophie en 325 MG / 03-17 (Same as: l Hydrocodone 20:26: [place] Mehreen nn Bitartrate 00 325/5) Do 5 MG Oral not exceed Tablet 4gm/day of acetaminop hen. Calcium No 1,000 mL, Memor ia Chloride 03-17 Rate: 125 l 0.0014 20:26: ml/hr, [place] MEQ/ML / Infuse Potassium over: 8 Chloride hr, Route: 0.004 IV, Dosing MEQ/ML / Weight Sodium 118.182 Chloride kg, Total 0.103 Volume: MEQ/ML / 1,000, Sodium Start Lactate date: 0.028 03/17/16 MEQ/ML 15:26:00 Injectable CDT, Solution Duration: 30 day, Stop date: 04/16/16 15:25:00 CDT cefOXitin No Route: IV, Me moria (ANES) 03-17 Drug form: l 20:21: INJ, ONCE, Stop date: 03/17/16 15:21:00 CDT cefOXitin No Route: IV, Me moria (ANES) 03-17 Drug form: l 20:21: INJ, ONCE, Stop date: 03/17/16 15:21:00 CDT LR 1000 mL No Route: IV, M emoria INJ (ANES) 03-17 Total l 19:32: Volume: [place] 00 1,000, Start date: 03/17/16 14:32:00 CDT, Stop date: 03/17/16 15:32:00 CDT LR 1000 mL No Route: IV, M emoria INJ (ANES) 03-17 Total l 19:32: Volume: [place] 00 1,000, Start date: 03/17/16 14:32:00 CDT, Stop date: 03/17/16 15:32:00 CDT Levothyroxi Yes 50 Memori a ne Sodium - microgram l 0.05 MG 14:57: = 1 tab, Jagdeep n Oral Tablet 00 PO, Daily, [Levothroid # 30 tab, ] 0 Refill(s) Aspirin 20160 Yes 81 mg, PO, Velasquez sophie 7-19 Daily, 0 l 14:57: Refill(s) Alcides 00 lisinopril Yes 20 mg = 1 Me moria 20 mg oral 7-19 tab, PO, l tablet 14:57: Daily, # Alcides 00 30 tab, 0 Refill(s) metoprolol 0 Yes 50 mg = 1 Me moria 50 mg oral 7-19 tab, PO, l tablet, 14:57: Daily, # Jagdeep n extended 00 30 tab, 0 release Refill(s) gemfibrozil Yes 600 mg = 1 Memoria 600 mg oral 7-19 tab, PO, l tablet 14:57: Daily, # Alcides 00 180 tab, 0 Refill(s) Levothyroxi Yes 50 Memori a ne Sodium 7-19 microgram l 0.05 MG 14:57: = 1 tab, Jagdeep n Oral Tablet 00 PO, Daily, [Levothroid # 30 tab, ] 0 Refill(s) Aspirin 0 Yes 81 mg, PO, Velasquez sophie 7-19 Daily, 0 l 14:57: Refill(s) [place] 00 lisinopril 0 Yes 20 mg = 1 Me moria 20 mg oral 7-19 tab, PO, l tablet 14:57: Daily, # Alcides 00 30 tab, 0 Refill(s) metoprolol 0 Yes 50 mg = 1 Me moria 50 mg oral 7-19 tab, PO, l tablet, 14:57: Daily, # Jagdeep n extended 00 30 tab, 0 release Refill(s) gemfibrozil 0 Yes 600 mg = 1 Memoria 600 mg oral 7-19 tab, PO, l tablet 14:57: Daily, # [place] 00 180 tab, 0 Refill(s) Immunizations Ordered Immunization Filled Immunization Date Status Commen ts Source Name Name pneumococcal 2016-03-18 Completed [facility] 23-valent vaccine 16:03:00 Alcides pneumococcal 2016-03-18 Completed [facility] 23-valent vaccine 16:03:00 Alcides Vital Signs Vital Name Observation Time Observation Value Comments Source Systolic (mm Hg) 2016-03-18 16:20:00 Velasquez rial Alcides Diastolic (mm Hg) 2016-03-18 16:20:00 Mem orial Alc[facility] Heart Rate 2016-03-18 16:20:00 [facility] Alc[facility] Respitory Rate 2016-03-18 15:45:00 Memori al [place] Heart Rate 2016-03-18 14:03:00 [facility] [place] Respitory Rate 2016-03-18 14:03:00 Memori al [place] Systolic (mm Hg) 2016-03-18 14:03:00 Velasquez rial Alcides Diastolic (mm Hg) 2016-03-18 14:03:00 Mem orial Alcides Respitory Rate 2016-03-18 09:00:00 Memori al [place] Heart Rate 2016-03-18 09:00:00 [facility] [place] Systolic (mm Hg) 2016-03-18 09:00:00 Velasquez rial [place] Diastolic (mm Hg) 2016-03-18 09:00:00 Mem orial Alc[place] Weight 2016-03-17 18:45:00 [facility] [place] BMI Calculated 2016-03-17 18:45:00 Memori al Alc[place] Height 2016-03-17 18:45:00 180.34 cm [facility] Alcides Weight 2016-03-17 14:28:00 [facility] Alc[facility] Temperature Oral (F) 2016-03-17 14:28:00 97.4 F [facility] [place] Temperature Oral (F) 2016-03-17 13:41:00 97.4 F [facility] Alcides Procedures Procedure Date / Time Performed Performing Clinician [facility] e section Memorial Jagdeep n Encounters Start End Encounter Admission Attending Care Care Encounter Source Date/Time Date/Time Type Type Clinicians Facility Department ID 2020-08-30 Inpatient U GINGER [facility] [id number] Univers 21:42:00 MIKE [facility] 2022-03-27 2022-03-27 Outpatient luis [facility] [id number] [id number] [facility] 00:00:00 00:00:00 0729 [facility] 2022-03-25 2022-03-25 Outpatient BHUPENDRA VILLAVICENCIO [id number] [place] 00:00:00 00:00:00 HN 0727 [facility] 2022-03-13 2022-03-13 Outpatient Carine HENDRIX RUMA [id number] [facility] 03:53:00 03:53:00 0715 [facility] Group 2022-03-10 2022-03-10 Outpatient BWilliams DMG [id number] [facility] 02:09:00 02:09:00 0712 Med[facility] l Group 2022-01-30 2022-01-30 Outpatient OWENS_T DMG [id number] [facility] 12:18:00 12:18:00 0603 Medica l Group 2021-08-26 2021-08-26 Outpatient OWENS_T DMG [id number] [facility] 10:51:00 10:51:00 1228 Medica l Group 2021-06-23 2021-06-23 Outpatient DMG [id number] [facility] 12:00:00 12:00:00 1025 Medica l Group 2020-11-21 2020-11-21 Outpatient TAY COBURN [facility] [id number] Univers 09:20:00 09:20:00 TAY ONTIVEROS i [facility] 2019-10-18 2019-10-18 Outpatient Elsi-Mbayo VFP [facility] [id number] [facility] 07:12:00 07:12:00 _A_AH [id number] Family Practic e 2016-03-17 2016-03-18 Inpatient nullFlavo [facility] [id number] Memoria 13:31:00 23:30:00 reji florentino [facility] 2016-03-17 2016-03-[address] [facility] [id number] Memoria 13:31:00 23:30:00 reji florentino [facility] 2016-03-17 2016-03-18 Outpatient BARBARA Briones [id number] 08:31:00 18:30:00 Micky Bynum This patient has no known results.
[2022-05-20 14:56] LABS: Absolute Lymphocytes (CBC) 2.3 K/uL (0.7-4.9); Hematocrit 34.7 % (36.0-45.0); Lymphocytes % 18.5 % (15.3-44.8); MCV 84.8 fL (80-100); MPV 7.9 fL (7.6-11.3); RBC Red Blood Cell Count 4.09 M/uL (3.86-4.86)
--- NOTE | 2022-05-20 15:16 | RAD REPORT ---
EXAM DESCRIPTION: CTAbdomen Pelvis W Contrast - 05/20/2022 3:06 pm CLINICAL HISTORY: Abdominal pain. RLQ abdomen pain COMPARISON: No comparisons TECHNIQUE: Biphasic CT imaging of the abdomen and pelvis was performed with 100 ml non-ionic IV cont rast. All CT scans are performed using dose optimization technique as appropriate and may include automated exposure control or mA/KV adjustment according to patient size. FINDINGS: The lung bases are clear.Cholecystectomy clips. The liver, spleen, pancreas, adrenal glands and kidneys are within normal limits. No bowel obstruction, free air, free fluid or abscess. The appendix is extremely enlarged and filled with soft tissue material and calcification. This measures 4.2 cm in transverse dimension. No evide nce of significant lymphadenopathy. No suspicious bony findings. IMPRESSION: Extremely enlarged appendix is present compatible with a mucocele.
[2022-05-20 15:18] LABS: Albumin 3.2 g/dL (3.4-5.0); Bilirubin Total 0.4 mg/dL (0.2-1.0); Potassium 3.3 mmol/L (3.5-5.1); Protein, Total 8.4 g/dL (6.4-8.2)
--- NOTE | 2022-05-20 15:56 | ER ---
Nurse's Notes [facility] Name: Lian Warner Age: 71 yrs Sex: Female : 1950 Arrival Date: 05/20/2022 Time: 13:21 Bed 19 Private MD: Hudson Zabala Atiq Diagnosis: Appendiceal Tumor;Lower abdominal pain, unspecified Presentation: 05/20 14:07 Chief complaint: Patient states: pt reports that she has been having abd pain x 2 days [facility] and pcp sent her in for ct. did have labs completed her output yesterday. Coronavirus screen: Vaccine status: Patient reports receiving the 2nd dose of the covid vaccine. Ebola Screen: Patient negative for fever greater than or equal to 101.5 degrees Fahrenheit, and additional compatible Ebola Virus Disease symptoms Patient denies exposure to infectious person. Patient denies travel to an Ebola-affected area in the 21 days before illness onset. 14:07 Method Of Arrival: Ambulatory [facility] 14:07 Acuity: CHELO 3 ss 19:00 Initial Sepsis Screen: Does the patient meet any 2 criteria? No. Patient's initial vc1 sepsis screen is negative. Risk Assessment: Do you want to hurt yourself or someone else? Patient reports no desire to harm self or others. Onset of symptoms is unknown. 23:36 Initial Sepsis Screen: Does the patient have a suspected source of infection? No. vc1 Patient's initial sepsis screen is negative. Triage Assessment: 14:08 General: Appears in no apparent distress. Behavior is calm, cooperative. Pain: [facility] Complains of pain in right lower quadrant Pain currently is 5 out of 10 on a pain scale. Quality of pain is described as crampy, sharp, Pain began 2-3 days ago. Is intermittent, episodic, Aggravated by increased activity. Historical: - Allergies: 14:08 NSAIDS (Non-Steroidal Anti-Inflamma; [facility] 14:08 shrimp; [facility] - PMHx: 14:08 diabetes mellitus; Hypertensive disorder; [facility] - PSHx: 14:08 Cholecystectomy; tubal ligation; [facility] - Immunization history:: Adult Immunizations. - Social history:: Smoking status: Patient denies any tobacco usage or history of. Screenin:15 Abuse screen: Denies threats or abuse. Denies injuries from another. Nutritional ko1 screening: No deficits noted. Tuberculosis screening: No symptoms or risk factors identified. Fall Risk No fall in past 12 months (0 pts). No secondary diagnosis (0 pts). IV access (20 points). Ambulatory Aid- None/Bed Rest/Nurse Assist (0 pts). Gait- Normal/Bed Rest/Wheelchair (0 pts) Mental Status- Oriented to own ability (0 pts). Total Galo Fall Scale indicates No Risk (0-24 pts). Assessment: 14:15 General: Appears uncomfortable, ill, Behavior is calm, cooperative, appropriate for ko1 age, Smells of. Pain: Complains of pain in abdomen. Neuro: No deficits noted. Cardiovascular: No deficits noted. Respiratory: No deficits noted. GI: No deficits noted. : No deficits noted. EENT: No deficits noted. Derm: No deficits noted. Musculoskeletal: No deficits noted. 19:00 Reassessment: Patient and/or family updated on plan of care and expected duration. Pain vc1 level reassessed. Patient is alert, oriented x 3, equal unlabored respirations, skin warm/dry/pink. 20:00 Reassessment: No changes from previously documented assessment. vc1 21:00 Reassessment: Patient and/or family updated on plan of care and expected duration. Pain vc1 level reassessed. Patient is alert, oriented x 3, equal unlabored respirations, skin warm/dry/pink. Patient denies pain at this time. 22:00 Reassessment: Patient and/or family updated on plan of care and expected duration. Pain vc1 level reassessed. Patient is alert, oriented x 3, equal unlabored respirations, skin warm/dry/pink. 23:00 Reassessment: Patient and/or family updated on plan of care and expected duration. Pain vc1 level reassessed. Patient is alert, oriented x 3, equal unlabored respirations, skin warm/dry/pink. 05/21 00:00 Reassessment: No changes from previously documented assessment. Patient and/or family vc1 updated on plan of care and expected duration. Pain level reassessed. Patient is alert, oriented x 3, equal unlabored respirations, skin warm/dry/pink. Vital Signs: 05/20 14:07 BP 135 / 60; Pulse 79; Resp 17; Temp 97.6(O); Pulse Ox 98% ; Weight 121.56 kg; Height 5 [facility] ft. 9 in. (175.26 cm); Pain 5/10; 14:15 BP 105 / 57; Pulse 75; Resp 18; Pulse Ox 98% ; ko1 15:00 BP 114 / 73; Pulse 77; ko1 16:00 BP 116 / 48; Pulse 76; ko1 17:00 BP 108 / 52; Pulse 82; ko1 18:00 BP 118 / 56 (art line/); Pulse 85; Resp 18; Pulse Ox 98% ; ko1 19:00 BP 112 / 62; Pulse 72; Resp 14; Pulse Ox 97% ; vc1 20:00 BP 111 / 54; Pulse 71; Resp 15; Pulse Ox 97% on R/A; vc1 21:00 BP 114 / 53; Pulse 70; Resp 14; Pulse Ox 97% ; vc1 22:00 BP 107 / 51; Pulse 70; Resp 16; Pulse Ox 97% ; vc1 05/21 00:15 BP 140 / 59; Pulse 71; Resp 12; Pulse Ox 98% ; vc1 05/20 14:07 Body Mass Index 39.58 (121.56 kg, 175.26 cm) [facility] Vitals: 05/20 14:15 Cardiac Rhythm Assessment Regular. [facility] ED Course: 13:21 Patient arrived in ED. am2 13:21 Hudson Zabala MD is Private Physician. am2 13:35 Mani Vang PA is PHCP. cp 13:36 Mani Worley MD is Attending Physician. cp 14:06 Leatha Torrez, RN is Primary Nurse. [facility] 14:09 Arm band placed on left wrist. [facility] 14:15 Patient has correct armband on for positive identification. Bed in low position. Call ko1 light in reach. Side rails up X 1. Pulse ox on. NIBP on. 14:[address] iw 14:40 Triage completed. ss 15:55 Jovan Kelley is Hospitalizing Provider. cp 16:41 Urine Microscopic Only Sent. kc6 19:19 CBC with Diff Sent. ko1 19:19 Lactate Sent. ko1 19:19 CMP Sent. ko1 19:19 Lipase Sent. ko1 21:30 SARS RAPID Sent. bb 05/21 00:47 No provider procedures requiring assistance completed. Patient admitted, IV remains in vc1 place. 20:23 Primary Nurse role handed off by Leatha Torrez RN ja4 20:23 Juvencio Cedillo, RN is Primary Nurse. ja4 Administered Medications: 05/20 15:43 Not Given (Physician Discretion): Zosyn (piperacillin-tazobactam) 3.375 grams IVPB once cp over 60 mins; (mix in NS 100 mL) 16:16 Drug: Benadryl (diphenhydrAMINE) 25 mg Route: IVP; Site: right antecubital; bm7 16:16 Drug: Pepcid (famotidine) 20 mg Route: IVP; Site: right antecubital; bm7 16:16 Drug: SOLU-Medrol (methylPrednisoLONE) 125 mg Route: IVP; Site: right antecubital; bm7 16:16 Drug: Dicyclomine 20 mg Route: IM; Site: right deltoid; bm7 16:16 Drug: metroNIDAZOLE 500 mg Volume: 100 ml; Route: IVPB; Infused Over: 30 mins; Site: bm7 left antecubital; 16:30 Drug: morphine 4 mg Route: IVP; Infused Over: 4 mins; Site: right antecubital; ss 17:15 Not Given (Physician Discretion): Potassium Chloride 10 mEq IV at calculated rate once; bm7 administer over 1-2 hours 17:16 Drug: Potassium Chloride 10 mEq Route: PO; bm7 17:56 Drug: LevaQUIN (levofloxacin) 750 mg Volume: 150 ml; Route: IVPB; Infused Over: 90 ko1 mins; Site: left antecubital; Medication: 14:15 VIS not applicable for this client. ko1 Outcome: 15:55 Decision to Hospitalize by Provider. cp 05/21 00:47 Admitted to ER Hold. Please see [facility] for further documentation. vc1 Condition: good Instructed on the need for admit. 05/22 06:43 Patient left the ED. ja4 Signatures: Zoe Sandoval RN RN bb Williams, Irene, RN RN iw Smirch, Shelby, RN RN ss Mani Vang PA PA cp Glo Metcalf Brittany, RN RN bm7 Leatha Torrez RN RN jh6 Erica Shipman RN RN vc1 Madhavi Avalos 6 Juvencio Cedillo RN RN ja4 Oliver, Nikole, RN RN ko1
--- NOTE | 2022-05-20 15:57 | EDPHYS ---
Physician Documentation [facility] Name: Lian Warner Age: 71 yrs Sex: Female : 1950 Arrival Date: 05/20/2022 Time: 13:21 Bed 19 Private MD: Hudson Zabala Atiq ED Physician Mani Worley HPI: 05/20 14:20 This 71 yrs old Female presents to ER via Ambulatory with complaints of Abnormal Lab cp Results. 14:20 The patient presents with abdominal pain right lower quadrant. cp 14:20 Onset: The symptoms/episode began/occurred 2 day(s) ago. The symptoms radiate to right cp back. 14:20 Associated signs and symptoms: Pertinent negatives: constipation, diarrhea, dysuria, cp fever, hematuria, vomiting. The symptoms are described as constant. Severity of pain: in the emergency department the pain is unchanged despite home interventions. 14:20 Patient reports she was referred to ED for CT abdomen/pelvis for RLQ abdomen pain. cp Historical: - Allergies: 14:08 NSAIDS (Non-Steroidal Anti-Inflamma; [facility] 14:08 shrimp; [facility] - PMHx: 14:08 diabetes mellitus; Hypertensive disorder; [facility] - PSHx: 14:08 Cholecystectomy; tubal ligation; [facility] - Immunization history:: Adult Immunizations. - Social history:: Smoking status: Patient denies any tobacco usage or history of. ROS: 14:25 Constitutional: Negative for body aches, chills, fever, poor PO intake. cp 14:25 Abdomen/GI: Positive for abdominal pain, of the right lower abdomen. cp 14:25 Eyes: Negative for injury, pain, redness, and discharge. cp 14:25 ENT: Negative for drainage from ear(s), ear pain, sore throat, difficulty swallowing, difficulty handling secretions. 14:25 Cardiovascular: Negative for chest pain, edema. 14:25 : Negative for urinary symptoms. 14:25 Neuro: Negative for altered mental status, dizziness, headache, syncope. 14:25 All other systems are negative. Exam: 14:30 Constitutional: The patient appears in no acute distress, alert, awake, non-toxic, well cp developed, well nourished, uncomfortable. 14:30 Head/Face: Normocephalic, atraumatic. cp 14:30 Eyes: Periorbital structures: appear normal, Conjunctiva: normal, no exudate, no injection, Sclera: no appreciated abnormality, Lids and lashes: appear normal, bilaterally. 14:30 ENT: External ear(s): are unremarkable, Nose: is normal, Mouth: Lips: moist, Oral mucosa: moist, Posterior pharynx: Airway: no evidence of obstruction, patent. 14:30 Chest/axilla: Inspection: normal. 14:30 Cardiovascular: Rate: normal, Rhythm: regular, Edema: is not appreciated, JVD: is not appreciated. 14:30 Respiratory: the patient does not display signs of respiratory distress, Respirations: normal, no use of accessory muscles, no retractions, labored breathing, is not present, Breath sounds: are clear throughout, no decreased breath sounds, no stridor, no wheezing. 14:30 Abdomen/GI: Inspection: abdomen appears normal, Bowel sounds: active, all quadrants, Palpation: soft, in all quadrants, moderate abdominal tenderness, in the right lower quadrant, rebound tenderness, is not appreciated, voluntary guarding, is elicited in the right lower quadrant. 14:30 Back: pain, that is moderate, of the right low back, ROM is normal, CVA tenderness, is absent. 14:30 Skin: cellulitis, is not appreciated, no rash present. Vital Signs: 14:07 BP 135 / 60; Pulse 79; Resp 17; Temp 97.6(O); Pulse Ox 98% ; Weight 121.56 kg; Height 5 jh6 ft. 9 in. (175.26 cm); Pain 5/10; 14:15 BP 105 / 57; Pulse 75; Resp 18; Pulse Ox 98% ; ko1 15:00 BP 114 / 73; Pulse 77; ko1 16:00 BP 116 / 48; Pulse 76; ko1 17:00 BP 108 / 52; Pulse 82; ko1 18:00 BP 118 / 56 (art line/); Pulse 85; Resp 18; Pulse Ox 98% ; ko1 19:00 BP 112 / 62; Pulse 72; Resp 14; Pulse Ox 97% ; vc1 20:00 BP 111 / 54; Pulse 71; Resp 15; Pulse Ox 97% on R/A; vc1 21:00 BP 114 / 53; Pulse 70; Resp 14; Pulse Ox 97% ; vc1 22:00 BP 107 / 51; Pulse 70; Resp 16; Pulse Ox 97% ; vc1 05/21 00:15 BP 140 / 59; Pulse 71; Resp 12; Pulse Ox 98% ; vc1 05/20 14:07 Body Mass Index 39.58 (121.56 kg, 175.26 cm) jh6 MDM: 05/20 14:07 Patient medically screened. maria del rosario 15:44 ED course: Dr Warner requests consult with Dr Parada if available. cp 05/20 14:16 Order name: CBC with Diff cp 05/20 14:16 Order name: CMP cp 05/20 14:16 Order name: Lipase cp 05/20 14:16 Order name: Urine Microscopic Only cp 05/20 14:16 Order name: Lactate cp 05/20 14:58 Order name: CBC with Automated Diff; Complete Time: 15:03 EDMS 05/20 15:16 Order name: Lactate; Complete Time: 15:29 EDMS 05/20 15:18 Order name: Comprehensive Metabolic Panel; Complete Time: 15:29 EDMS 05/20 15:18 Order name: Lipase; Complete Time: 15:29 EDMS 05/20 16:40 Order name: Urine Dipstick-Ancillary EDMS 05/20 16:58 Order name: Urine Microscopic Only EDMS 05/20 20:07 Order name: SARS RAPID cp 05/20 21:59 Order name: SARS-COV-2 Antigen Rapid EDMS 05/21 02:56 Order name: CBC with Automated Diff EDMS 05/20 14:16 Order name: CT Abd/Pelvis - IV Contrast Only cp 05/20 15:18 Order name: CT; Complete Time: 15:29 EDMS 05/20 15:34 Interpretation: Report reviewed. cp 05/21 03:08 Order name: Comprehensive Metabolic Panel EDMS 05/21 03:08 Order name: Phosphorus EDMS 05/21 03:08 Order name: Magnesium EDMS 05/21 03:42 Order name: Glucose, Ancillary Testing EDMS 05/21 10:22 Order name: Urine Dipstick-Ancillary EDMS 05/21 10:29 Order name: Urinalysis EDMS 05/21 11:43 Order name: Glucose, Ancillary Testing EDMS 05/22 01:53 Order name: Glucose, Ancillary Testing EDMS 05/22 04:15 Order name: CBC with Automated Diff EDMS 05/22 04:29 Order name: Basic Metabolic Panel EDMS 05/20 14:16 Order name: IV Saline Lock; Complete Time: 15:38 cp 05/20 14:16 Order name: Labs collected and sent; Complete Time: 15:38 cp 05/20 14:16 Order name: Urine Dipstick-Ancillary (obtain specimen); Complete Time: 16:17 cp 05/20 15:33 Order name: NPO; Complete Time: 15:37 cp Administered Medications: 15:43 Not Given (Physician Discretion): Zosyn (piperacillin-tazobactam) 3.375 grams IVPB once cp over 60 mins; (mix in NS 100 mL) 16:16 Drug: Benadryl (diphenhydrAMINE) 25 mg Route: IVP; Site: right antecubital; bm7 16:16 Drug: Pepcid (famotidine) 20 mg Route: IVP; Site: right antecubital; bm7 16:16 Drug: SOLU-Medrol (methylPrednisoLONE) 125 mg Route: IVP; Site: right antecubital; bm7 16:16 Drug: Dicyclomine 20 mg Route: IM; Site: right deltoid; bm7 16:16 Drug: metroNIDAZOLE 500 mg Volume: 100 ml; Route: IVPB; Infused Over: 30 mins; Site: bm7 left antecubital; 16:30 Drug: morphine 4 mg Route: IVP; Infused Over: 4 mins; Site: right antecubital; ss 17:15 Not Given (Physician Discretion): Potassium Chloride 10 mEq IV at calculated rate once; bm7 administer over 1-2 hours 17:16 Drug: Potassium Chloride 10 mEq Route: PO; bm7 17:56 Drug: LevaQUIN (levofloxacin) 750 mg Volume: 150 ml; Route: IVPB; Infused Over: 90 ko1 mins; Site: left antecubital; Disposition Summary: 05/20/22 15:55 Hospitalization Ordered Hospitalization Status: Inpatient Admission cp Provider: Jovan Kelley cp Condition: Stable cp Problem: new cp Symptoms: have improved cp Bed/Room Type: Standard cp Location: Telemetry/MedSurg (Inpatient)(05/22/22 05:22) mw Room Assignment: 204(05/22/22 05:22) mw Diagnosis - Appendiceal Tumor cp - Lower abdominal pain, unspecified cp Forms: - Medication Reconciliation Form cp - SBAR form cp Signatures: Dispatcher [employer] EDMS Karen Villeda RN RN Mani Fortune MD MD cha Smirch, Shelby RN RN Mani Quinn PA PA cp Basinger, Emily RN RN eb1 Bhavana Sanchez, RN RN bm7 Leatha Torrez RN RN jh6 Nikole Nicole RN RN ko1 Corrections: (The following items were deleted from the chart) 22:43 15:55 cp eb1 22:54 15:55 Telemetry/MedSurg (Inpatient) eb 22:54 22:43 420 eb1 eb1 05/22 05:22 05/20 22:54 [facility] ER HOLD eb1 05/22 05:05/20 22:54 ERHOLD- eb1
[2022-05-20] MEDS ORDERED: DIPHENHYDRAMINE 50 MG/ML VIAL ONE (16:05)
[2022-05-20] MEDS ORDERED: METHYLPREDNISOLONE 125 MG INJ ONE (16:05)
[2022-05-20] MEDS ORDERED: METRONIDAZOLE 500mg IVPB 500 MG/100 ML BAG IV ONE (16:06)
[2022-05-20] MEDS ORDERED: Levofloxacin 750mg IV 750 MG/150 ML BAG IV ONE ×2 (16:06→18:16)
[2022-05-20] MEDS ORDERED: PIPERACIL/TAZO 3.375 GM VIAL IV ONE (16:06)
[2022-05-20] MEDS ORDERED: NA CHLORIDE 0.9% 100 ML ONE (16:06)
[2022-05-20] MEDS ORDERED: FAMOTIDINE 20 MG/2 ML VIAL IV ONE (16:06)
[2022-05-20] MEDS ORDERED: DICYCLOMINE HCL 20 MG/2 ML AMP IM ONE (16:06)
[2022-05-20] MEDS ORDERED: MORPHINE 4 MG/ML SYR ONE (16:30)
[2022-05-20] MEDS ORDERED: KCL 20 MEQ/100 mL IVPB 0 ML IV ONE (16:31)
[2022-05-20] MEDS ORDERED: POTASSIUM CL SA 10 MEQ TAB PO ONE (16:35)
[2022-05-20 16:39] LABS: Urine Blood Negative (Negative); Urine Glucose Negative (Negative); Urine Protein Negative (Negative); Urine Specific Gravity 1.015 (1.005-1.030)
--- NOTE | 2022-05-20 19:07 | P.HP ---
Certification for Inpatient Patient admitted to: Inpatient With expected LOS: >2 Midnights Practitioner: I am a practitioner with admitting privileges, knowledge of patient current condition, hospital course, and medical plan of care. Services: Services provided to patient in accordance with Admission requirements found in Title 42 Section 412.3 of the Code of Federal Regulations Patient History Date of Service: 05/20/22 Reason for admission: Abdominal pain History of Present Illness: 72-year-old woman with a history of hypertension, diabetes mellitus on Ozempic presented to the emergency department complaining of right lower abdominal pain of about 4 days duration. Patient describes a colicky abdominal pain, maximum intensity is 10/10. Symptoms preceded by 2 weeks of diarrhea. No nausea or vomiting. She denied any fever. She denied any dysuria or increased urinary frequency. Blood work done in the ED shows mild leukocytosis. Patient does not meet criteria for sepsis. CT abdomen pelvis shows large distended appendix about 4.2 cm compatible with a mucocele. General surgery Dr. Warner contacted who recommended hospitalization for IV antibiotics and possible surgery. Patient is hospitalized for further management. Allergies NSAIDS (Non-Steroidal Anti-Inflamma Allergy (Verified 05/09/21 14:02) Kidney failure shrimp Allergy (Verified 05/09/21 14:02) Anaphylaxis Home Medications: Semaglutide [Ozempic] 0.25 mg SQ 05/09/21 - Past Medical/Surgical History -: Hypertension -: Diabetes -: Hyperlipidemia -: Obesity - Social History Smoking Status: Never smoker Alcohol use: No CD- Drugs: No Place of Residence: Home Review of Systems Other: Except as documented, all other systems reviewed and negative. Physical Examination - Physical Exam General: Alert, In no apparent distress, Oriented x3, Obese HEENT: Mucous membr. moist/pink Neck: Supple, JVD not distended Respiratory: Clear to auscultation bilaterally, Normal air movement Cardiovascular: No edema, Regular rate/rhythm, Normal S1 S2 Capillary refill: <2 Seconds Gastrointestinal: Normal bowel sounds, Non-distended, Tenderness Musculoskeletal: No swelling Integumentary: No rashes Neurological: Normal speech, Normal strength at 5/5 x4 extr - Studies Laboratory Data (last 24 hrs) 05/20/22 14:43: Sodium 135 L, Potassium 3.3 L, BUN 18, Creatinine 1.08, Glucose 113 H, Total Bilirubin 0.4, AST 6 L, ALT 17, Alkaline Phosphatase 90, Lipase 189 05/20/22 14:43: WBC 12.40 H, Hgb 11.4 L, Hct 34.7 L, Plt Count 451 H Assessment and Plan - Problems (Diagnosis) (1) Mass of appendix Current Visit: Yes Status: Acute (2) Leukocytosis Current Visit: Yes Status: Acute (3) Diabetes mellitus type 2 in obese Current Visit: Yes Status: Acute - Plan Admit to the medical floor. Treat with aggressive IV antibiotics-Zosyn and Levaquin IV morphine as needed for pain. Patient seen by Dr. Warner recommending IV antibiotics for 1 or 2 days before consideration for surgery. Insulin sliding scale for glucose management. Keep n.p.o. Monitor CBC to follow leukocytosis. - Advance Directives Does patient have a Living Will: No Does patient have a Durable POA for Healthcare: No
--- NOTE | 2022-05-20 21:04 | CON ---
Date of Consultation: 05/20/2022 Reason For Consultation: Abdominal pain. History Of Present Illness: This is the case of a 71-year-old patient who had abdominal pain for abo ut 4-5 days of duration. She does not remember eating anything out of usual. She has a mild tendern ess in that area, which did go away then 2-3 days later got worse and today she decided to check it o ut. She had a CAT scan of the abdomen and pelvis that found the area on the right lower side that wa s consistent with a large mucocele, which is symptomatic at this moment with pain. She states she castañeda s been eating well in the last 4 or 5 days. Although she denies any dysuria, hematuria, hematochezia , or melena. Denies any recent traveling out of the country. Denies any family member sick at home. She was diagnosed with diabetes last year. She stated before that it was only hypertension. Allergies: NSAID AND SHRIMP. Past Medical History: Diabetes, once again recently diagnosed and hypertension. Past Surgical History: Cholecystectomy and tubal ligation. Family History: No history of colon cancer. Social History: She does not smoke. She does not drink alcohol. Review of Systems: Other than the generalized abdominal pain, see H and P, a 10 point is otherwise unremarkable. No fev er. No shortness of breath. No dysuria, hematuria, hematochezia, or melena. Physical Examination: General: Patient is awake and alert. Eyes: Pupils are equal and reactive. Anicteric. Neck: Supple. Chest: Clear. Heart: S1, S2. Abdomen: Lower abdominal tenderness. There is no guarding or rebound. There is mild generalized te nderness. Pelvic: Deferred. Rectal: Deferred. Extremities: Good capillary refill. Laboratory Data: WBC count of 12.4, hemoglobin of 11, and platelets of 451. Potassium 3.3, glucose 113. CT scan of the abdomen and pelvis interpreted by Dr. Thomas as large mucocele measuring about 4.2 in transverse diameter. No evidence of lymphadenopathy. No bowel obstruction. No free air. No fr ee fluid. Assessment: This is a 71-year-old patient with what looks like is large mucocele. I talked to Dr. Lincoln toro, her android platform developer. Last colonoscopy was about 8 years ago. She has not had a CAT scan recently or anything in the last year that we find to look for to see if we can compare this and see how long this mucocele has been there. At the same time, I explained to her we cannot rule out infla mmatory process in that area. It does not look like an abscess is hard to rule out completely. We e xplained to her the possibility of tumors. Dr. Parada will come home and eventually evaluate the p atient. He cannot see the patient today. We are going to admit the patient for IV antibiotics and b owel rest. She understands the option of diagnostic lap, even a laparotomy, and even a bowel resecti on. She understands the risks, which include, but are not limited to infection, bleeding, damage to adjacent structures, anesthesia complication, myocardial infarction, and . She also understands if this is a mucocele, there is sometimes a way to rupture with the risk of dissemination after rupt ure and spillage of mucin that can lead to pseudomyxoma peritonei, which has sometimes a scary and un fortunate prognosis. HARRIS/ABDI Voice ID: [id number] Report ID: [id number]
[2022-05-20 21:58] LABS: SARS-CoV-2 Antigen Rapid Res Negative (Negative)
[2022-05-21] MEDS ORDERED: Levofloxacin 750mg IV 750 MG/150 ML BAG IV SCH ×2 (01:56→18:00)
[2022-05-21] MEDS: INSULIN -REGULAR HUMAN 50 UNIT/0.5 ML ML SQ SCH ×3 (01:56→19:56)
[2022-05-21] MEDS: NA CHLORIDE 0.9% 1,000 ML IV SCH ×2 (01:56→17:56)
[2022-05-21] MEDS ORDERED: MORPHINE 2 MG/ML SYR IV PRN (01:56)
[2022-05-21] MEDS: PIPER TAZO 3.375 GM in NA CHLORIDE 0.9% 100 ML IV SCH ×3 (01:56→17:00)
[2022-05-21] MEDS ORDERED: ONDANSETRON 4 MG/2 ML VIAL IV PRN (01:56)
[2022-05-21 02:04] VITALS: BMI 39.5
[2022-05-21 02:52] LABS: Absolute Lymphocytes (CBC) 0.7 K/uL (0.7-4.9); Hematocrit 31.7 % (36.0-45.0); Lymphocytes % 9.7 % (15.3-44.8); MCV 83.3 fL (80-100); MPV 7.8 fL (7.6-11.3)
[2022-05-21 03:05] LABS: Albumin 2.8 g/dL (3.4-5.0); Bilirubin Total 0.3 mg/dL (0.2-1.0); Magnesium 2.1 mg/dL (1.8-2.4); Phosphorus 2.6 mg/dL (2.5-4.9); Potassium 3.8 mmol/L (3.5-5.1); Protein, Total 7.7 g/dL (6.4-8.2)
[2022-05-21] MEDS ORDERED: NA CHLORIDE 0.9% 1,000 ML ONE ×3 (03:16→20:07)
[2022-05-21] MEDS ORDERED: PIPERACIL/TAZO 3.375 GM VIAL IV ONE ×3 (03:16→20:07)
[2022-05-21] MEDS ORDERED: NA CHLORIDE 0.9% 100 ML ONE ×2 (09:21→20:07)
[2022-05-21 10:21] LABS: Urine Blood Negative (Negative); Urine Glucose Negative (Negative); Urine Protein Negative (Negative); Urine pH 6.5 (5.0-7.0)
[2022-05-21 10:29] LABS: Urine Bilirubin NEGATIVE (Negative); Urine Blood Negative (Negative); Urine Clarity Clear (Clear); Urine Color Light-Yellow (Yellow); Urine Glucose NEGATIVE (Negative); Urine Protein NEGATIVE (Negative); Urine Urobilinogen Normal (Normal); Urine pH 6.5 (5.0-7.0)
--- NOTE | 2022-05-21 17:28 | P.PN ---
Subjective Date of Service: 05/21/22 Chief Complaint: Abdominal pain Patient states she feels better today. She stated her abdominal pain has significantly improved. She has had no fever. Leukocytosis resolved. Physical Examination - Vital Signs Temperature: 98.2 F Blood Pressure: 127/58 Pulse: 69 Respirations: 16 Pulse Ox (%): 100 Assessment And Plan - Current Problems (Diagnosis) (1) Mass of appendix Current Visit: Yes Status: Acute (2) Leukocytosis Current Visit: Yes Status: Acute (3) Diabetes mellitus type 2 in obese Current Visit: Yes Status: Acute - Plan Physical Exam General: Alert, In no apparent distress, Oriented x3. Respiratory: Clear to auscultation bilaterally, Normal air movement Cardiovascular: No edema, Regular rate/rhythm, Normal S1 S2 Gastrointestinal: Normal bowel sounds, Non-distended, Tenderness right lower quadrant. Musculoskeletal: No swelling Integumentary: No rashes Neurological: Normal speech, Normal strength at 5/5 x4 extr Plan: Continue IV Zosyn. IV morphine as needed for pain. Dr. Warner is following and recommending outpatient work-up for malignancy if patient remains stable and tolerates diet by tomorrow. GI consult. Dr. Patton is aware. Insulin sliding scale for glucose management. Keep n.p.o. Monitor CBC and electrolytes.
[2022-05-22] MEDS: PIPER TAZO 3.375 GM in NA CHLORIDE 0.9% 100 ML IV SCH ×3 (01:00→17:53)
[2022-05-22] MEDS ORDERED: PIPERACIL/TAZO 3.375 GM VIAL IV ONE (01:41)
[2022-05-22] MEDS: INSULIN -REGULAR HUMAN 50 UNIT/0.5 ML ML SQ SCH ×3 (01:42→21:00)
[2022-05-22] MEDS: D5 0.45 NS 1,000 ML IV SCH ×2 (01:58→22:50)
[2022-05-22] MEDS ORDERED: D5 0.45 NS 1,000 ML IV ONE (02:00)
[2022-05-22 04:09] LABS: Absolute Lymphocytes (CBC) 2.2 K/uL (0.7-4.9); Lymphocytes % 20.7 % (15.3-44.8); MCV 83.3 fL (80-100); MPV 8.4 fL (7.6-11.3); RBC Red Blood Cell Count 3.72 M/uL (3.86-4.86)
[2022-05-22 04:27] LABS: Potassium 3.3 mmol/L (3.5-5.1)
[2022-05-22] MEDS ORDERED: KCL 20 MEQ/100 mL IVPB 20 MEQ/100 ML BAG IV SCH ×2 (09:30→21:00)
[2022-05-22] MEDS: NA CHLORIDE 0.9% 1,000 ML IV SCH ×2 (09:56→17:56)
--- NOTE | 2022-05-22 13:44 | P.PN ---
Subjective Date of Service: 05/22/22 Chief Complaint: Abdominal pain Patient denies any abdominal pain and wants to eat. No issues overnight. Physical Examination - Vital Signs Temperature: 97.3 F Blood Pressure: 140/67 Pulse: 66 Respirations: 20 Pulse Ox (%): 99 Assessment And Plan - Current Problems (Diagnosis) (1) Mass of appendix Current Visit: Yes Status: Acute (2) Leukocytosis Current Visit: Yes Status: Acute (3) Diabetes mellitus type 2 in obese Current Visit: Yes Status: Acute - Plan Physical Exam General: Alert, In no apparent distress, Oriented x3. Respiratory: Clear to auscultation bilaterally, Normal air movement Cardiovascular: No edema, Regular rate/rhythm, Normal S1 S2 Gastrointestinal: Normal bowel sounds, Non-distended, moderate tenderness on deep palpation, no rebound tenderness or guarding. Musculoskeletal: No swelling Integumentary: No rashes Neurological: Normal speech, Normal strength at 5/5 x4 extr Plan: Abdomen is benign on examination Continue IV Zosyn. IV morphine as needed for pain. Patient started on full liquid diet per surgery recommendation. Patient seen by GI-Dr. Parada. Dr. Warner recommended further work-up as outpatient. Insulin sliding scale for glucose management.
--- NOTE | 2022-05-23 00:42 | PN ---
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 The patient has been doing okay. We are keeping her n.p.o., gave her antibiotics to the point right now, the patient has no pain, although if we press there, she may have some tenderness. She is very hungry and we proposed different options. Obviously, the options of laparotomy, possible right hemic olectomy is there. She discussed her case with the health communications specialist. She obviously preferred to do this in a more methodical fashion which means a colonoscopy first to see any synchronous lesions, wo rkup on her case and bring the swelling down and then proceed with surgical intervention, which in th is case is a guarantee. She understand the different options she has. She wants to do this elective ly if possible, once again, trying to minimize any complication due to the possibility of a cyst may rupture doing surgery laparoscopically and/or even open and cause metastasis of the abdomen. Today, the abdomen is still benign, but extremities have good capillary refill. Plan: We going to give her full liquid diet and see how she advances. If she is able to stay pain-f ree, then electively we going to send her to the colorectal surgeons [place] where they can probab ly attempt this laparoscopically. In this institution, I consulted with some of the surgeons, they w ill not do laparoscopically neither due to the risk of metastatic disease. If she does not improve a nd she gets worse and clinically she deteriorates, then she may have to go for right hemicolectomy. HARRIS/ABDI Voice ID: [id number] Report ID: [id number]
[2022-05-23] MEDS: PIPER TAZO 3.375 GM in NA CHLORIDE 0.9% 100 ML IV SCH ×2 (01:41→09:03)
[2022-05-23] MEDS: NA CHLORIDE 0.9% 1,000 ML IV SCH ×2 (01:56→09:56)
[2022-05-23 05:51] LABS: Potassium 3.5 mmol/L (3.5-5.1)
[2022-05-23] MEDS: INSULIN -REGULAR HUMAN 50 UNIT/0.5 ML ML SQ SCH ×2 (07:30→11:30)
[2022-05-23 07:34] VITALS: TEMP 97.3
[2022-05-23 08:31] LABS: Phosphorus 2.8 mg/dL (2.5-4.9)
[2022-05-23] MEDS ORDERED: POTASSIUM 25 MEQ EFFERV TAB PO ONE (09:00)
--- NOTE | 2022-05-23 11:26 | P.DS ---
Admission Date: 05/20/22 Discharge Date: 05/23/22 Disposition: ROUTINE DISCHARGE Discharge Condition: FAIR Reason for Admission: Abdominal pain - Problems (1) Mass of appendix Current Visit: Yes Status: Acute (2) Leukocytosis Current Visit: Yes Status: Acute (3) Diabetes mellitus type 2 in obese Current Visit: Yes Status: Acute Brief History of Present Illness: 72-year-old woman with a history of hypertension, diabetes mellitus on Ozempic presented to the emergency department complaining of right lower abdominal pain of about 4 days duration. Patient describes a colicky abdominal pain, maximum intensity is 10/10. Symptoms preceded by 2 weeks of diarrhea. No nausea or vomiting. She denied any fever. She denied any dysuria or increased urinary frequency. Blood work done in the ED shows mild leukocytosis. Patient does not meet criteria for sepsis. CT abdomen pelvis shows large distended appendix about 4.2 cm compatible with a mucocele. General surgery Dr. Warner contacted who recommended hospitalization for IV antibiotics and possible surgery. Patient is hospitalized for further management. Hospital Course: Noted to the medical floor and treated with IV Zosyn to cover intra-abdominal infection. She was seen and evaluated by general surgery Dr. Warner as well as GI Dr. Patton. Serial abdominal examination was benign throughout the hospital stay. She had mild leukocytosis which resolved. Her pain also resolved. Patient suspected to have appendiceal mass rather than acute appendicitis per general surgery. Dr. Warner recommend follow-up with him in the office for referral to colorectal surgeon. Patient tolerated diet advancement to full liquid with no abdominal pain. Vitals are stable. She is aware of the follow-up with Dr. Warner next week. Patient is deemed stable for discharge per surgery. Vital Signs/Physical Exam: Temp Pulse Resp BP Pulse Ox 97.3 F 64 16 143/64 H 96 05/23/22 07:33 05/23/22 07:33 05/23/22 07:33 05/23/22 07:33 05/23/22 07:33 General: Alert, In no apparent distress, Oriented x3 HEENT: Mucous membr. moist/pink Neck: JVD not distended Respiratory: Other (Nonlabored breathing) Cardiovascular: No edema, Regular rate/rhythm, Normal S1 S2 Gastrointestinal: Soft and benign, Non-distended Musculoskeletal: No swelling Integumentary: No rashes Neurological: Other (No focal motor deficit) Laboratory Data at Discharge: WBC 10.80 K/uL (4.3-10.9) 05/22/22 03:10 Hgb 10.7 g/dL (12.0-15.0) L 05/22/22 03:10 Hct 31.0 % (36.0-45.0) L 05/22/22 03:10 Plt Count 405 K/uL (152-406) 05/22/22 03:10 Sodium 139 mmol/L (136-145) 05/23/22 05:12 Potassium 3.5 mmol/L (3.5-5.1) 05/23/22 05:12 BUN 14 mg/dL (7-18) 05/23/22 05:12 Creatinine 0.93 mg/dL (0.55-1.3) 05/23/22 05:12 Glucose 110 mg/dL (74-106) H 05/23/22 05:12 Phosphorus 2.8 mg/dL (2.5-4.9) 05/23/22 05:12 Magnesium 2.0 mg/dL (1.8-2.4) 05/23/22 05:12 Total Bilirubin 0.3 mg/dL (0.2-1.0) 05/21/22 02:23 AST 11 U/L (15-37) L 05/21/22 02:23 ALT 22 U/L (12-78) 05/21/22 02:23 Alkaline Phosphatase 102 U/L (45-117) 05/21/22 02:23 Lipase 189 U/L (73-393) 05/20/22 14:43 Home Medications: Allopurinol 100 mg PO DAILY 05/21/22 Amlodipine [Norvasc*] 2.5 mg PO DAILY 05/21/22 Cholecalciferol (Vitamin D3) [Vitamin D3] 1 tab PO DAILY 05/21/22 Cranberry Fruit Extract [Cranberry] 200 mg PO DAILY 05/21/22 Ezetimibe [Zetia*] 10 mg PO DAILY 05/21/22 Ferrous Sulfate [Iron] 325 mg PO DAILY 05/21/22 Furosemide [Lasix*] 20 mg PO SEECOM 05/21/22 Gabapentin [Neurontin*] 200 mg PO BEDTIME 05/21/22 Levothyroxine Sodium [Levothyroxine] 50 mcg PO DAILY 05/21/22 Losartan Potassium [Cozaar] 100 mg PO DAILY 05/21/22 Metoprolol Succinate 25 mg PO DAILY 05/21/22 Olopatadine HCl [Pataday Once Daily Relief] 1 drop OP DAILY 05/21/22 Pravastatin Sodium 20 mg PO BEDTIME 05/21/22 Ropinirole HCl [Requip] 2 mg PO BEDTIME 05/21/22 Semaglutide [Ozempic] 1 mg SQ SEECOM 05/21/22 gemfibroziL [Gemfibrozil] 600 mg PO DAILY 05/21/22 hydroCHLOROthiazide [Hydrochlorothiazide*] 25 mg PO DAILY 05/21/22 Ciprofloxacin HCl [Cipro] 500 mg PO TID #42 tab 05/23/22 Metronidazole 500 mg PO BID #28 tab 05/23/22 New Medications: Ciprofloxacin HCl [Cipro] 500 mg PO TID #42 tab Metronidazole 500 mg PO BID #28 tab Physician Discharge Instructions: Full liquid diet Activity: Ad ld Followup: Cristal Meredith PAC [Primary Care Provider] - 1 Week (Please call to make an appointment. ) Bryce Warner MD [ACTIVE - CAN ADMIT] - 1 Week (Please call to make an appointment next week. ) Time spent managing pt's care (in minutes): 35
[2022-05-23 18:54] VITALS: BP 111/54; O2SAT 97
== END 2022-05-23 13:45 | disposition home or self-care (01) | DRG 395 ==
LOC: ER 13:18 → ERHOLD 18:38 → 2ND 05-22 05:25
PROVIDERS: ADMIT Internal Medicine; ATTEND Internal Medicine
DX: K38.9 Disease of appendix, unspecified (principal); I10 Essential (primary) hypertension; E11.9 Type 2 diabetes mellitus without complications; E78.5 Hyperlipidemia, unspecified; E66.9 Obesity, unspecified; D72.829 Elevated white blood cell count, unspecified; Z88.8 Allergy status to other drugs, medicaments and biological substances; Z68.39 Body mass index [BMI] 39.0-39.9, adult; Z90.49 Acquired absence of other specified parts of digestive tract; Z98.51 Tubal ligation status; Z79.899 Other long term (current) drug therapy; Z91.013 Allergy to seafood; Z20.822 Contact with and (suspected) exposure to COVID-19
CPT/HCPCS: 36415; 74177; 80048; 80053; 81001; 81003; 81015; 82947; 83605; 83690; 83735; 84100; 84132; 85025; 87811; 96372; 99285; J0500; J1200; J1815; J2543; J2930; J3480; J7030; J7799; Q9967